=== PATIENT | female | born 1955 | race Caucasian/White ===

== ENCOUNTER 2017-11-13 06:56 | Day surgery (SDC) | payer OTHER ==
[2017-11-13] MEDS ORDERED: CEFAZOLIN 1 GM INJ (07:00)
[2017-11-13] MEDS: CEFAZOLIN 1 GM/50 ML (PMX) 50 ML IVPB (09:00)
[2017-11-13] MEDS ORDERED: LIDOCAINE 2% (SDV) 5 ML INJ (10:03)
[2017-11-13] MEDS ORDERED: GLYCOPYRROLATE 0.4 MG INJ (10:03)
[2017-11-13] MEDS ORDERED: PROPOFOL 20 ML (10:03)
[2017-11-13] MEDS ORDERED: NEOSTIGMINE 3 MG/3 ML SYRINGE (10:03)
[2017-11-13] MEDS ORDERED: FENTAnyl 50 MCG/ML VIAL ×2 (10:03→13:42)
[2017-11-13] MEDS ORDERED: ROCURONIUM 50 MG INJ (10:03)
[2017-11-13] MEDS ORDERED: MIDAZOLAM 1 MG/ML 2 ML INJ (10:03)
[2017-11-13] MEDS ORDERED: ONDANSETRON 4 MG INJ ×2 (10:04→13:42)
[2017-11-13] MEDS ORDERED: DEXAMETHASONE 4 MG/ML 1 ML INJ (10:04)
[2017-11-13] MEDS ORDERED: SUCCINYLCHOLINE CHLORIDE 100 MG/5 ML SYG IV (10:09)
[2017-11-13] MEDS: SOD CHLORIDE 0.9% 1,000 ML IV (10:22)
[2017-11-13] MEDS ORDERED: PHENYLephrine (100 MCG/ML) 5ML SYG (13:00)
[2017-11-13] MEDS ORDERED: FENTAnyl 50 MCG/ML VIAL IV ×2 (14:00)
[2017-11-13] MEDS ORDERED: LABETALOL HCL 20MG INJ IV (14:00)
[2017-11-13] MEDS ORDERED: OXYCODONE/ACETAMINOPHEN (5/325) TAB PO (14:00)
[2017-11-13] MEDS ORDERED: hydrALAzine 20 MG INJ IV (14:00)
[2017-11-13] MEDS: FENTAnyl 50 MCG/ML VIAL IV (14:21)
[2017-11-13] MEDS: ONDANSETRON 4 MG INJ IV (14:23)
[2017-11-13] MEDS: HYDROCODONE/APAP (7.5/325) TAB PO (14:29)
[2017-11-13] MEDS: OXYCODONE/ACETAMINOPHEN (5/325) TAB PO (15:58)
== END 2017-11-13 16:17 | disposition home or self-care (01) ==
LOC: SDS 06:56
DX: D05.12 Intraductal carcinoma in situ of left breast (principal); I10 Essential (primary) hypertension; E11.9 Type 2 diabetes mellitus without complications; E78.5 Hyperlipidemia, unspecified
CPT/HCPCS: 19301; 71045; 82962; 88307; 93005

== ENCOUNTER 2017-11-19 09:46 | Observation (INO) | payer OTHER ==
[2017-11-19 10:36] LABS: ADD MAN DIFF? NO
[2017-11-19 10:37] LABS: BASOPHILS % 0.4 % (0.0-2.0); EOSINOPHILS # 0.3 10^3/ul (0.0-0.5); EOSINOPHILS % 3.1 % (0.0-7.0); HEMATOCRIT 35.8 % (37.0-47.0); HEMOGLOBIN 11.8 g/dl (12.0-16.0); LYMPHOCYTES # 2.7 10^3/ul (0.8-2.9); LYMPHOCYTES % 24.7 % (15.0-51.0); MEAN CORPUSCULAR HEMOGLOBIN 28.6 pg (29.0-33.0); MEAN CORPUSCULAR VOLUME 86.9 fl (82.0-101.0); MEAN PLATELET VOLUME 10.1 fl (7.4-10.4); MONOCYTE # 0.9 10^3/ul (0.3-0.9); MONOCYTES % 8.1 % (0.0-11.0); NEUTROPHILS % 63.2 % (39.0-77.0); PLATELET COUNT 357 10^3/UL (140-415); RED BLOOD COUNT 4.12 10^6/ul (4.20-5.40); RED CELL DISTRIBUTION WIDTH 13.2 % (11.5-14.5)
[2017-11-19] MEDS: SOD CHLORIDE 0.9% 1,000 ML IV (10:49)
[2017-11-19 10:57] LABS: ALANINE AMINOTRANSFERASE 17 IU/L (13-69); ALBUMIN 4.5 g/dl (3.3-4.9); ALBUMIN/GLOBULIN RATIO 1.36; ALKALINE PHOSPHATASE 75 IU/L (42-121); ANION GAP 13 (8-16); ASPARTATE AMINO TRANSFERASE 22 IU/L (15-46); BILIRUBIN,INDIRECT 0.6 mg/dl (0-1.1); BILIRUBIN,TOTAL 0.6 mg/dl (0.2-1.3); BLOOD UREA NITROGEN 11 mg/dl (7-20); CALCIUM 9.3 mg/dl (8.4-10.2); CARBON DIOXIDE 31 mmol/L (21-31); CHLORIDE 96 mmol/L (97-110); CREATININE 0.64 mg/dl (0.44-1.00); GLUCOSE 211 mg/dl (70-220); INR 0.95; POTASSIUM 3.3 mmol/L (3.5-5.1); PROTIME 12.8 Sec (11.9-14.9); SODIUM 137 mmol/L (135-144); TOTAL PROTEIN 7.8 g/dl (6.1-8.1)
[2017-11-19 10:58] LABS: PARTIAL THROMBOPLASTIN TIME 29.9 Sec (25.0-35.0)
[2017-11-19 11:09] LABS: TROPONIN-I < 0.010 ng/ml (0.000-0.120)
[2017-11-19] MEDS: SOD CHLORIDE 0.9% 100 ML (11:58)
[2017-11-19] MEDS: IOHEXOL 100 ML (11:58)
[2017-11-19] MEDS: POTASSIUM CHLORIDE (SR) 20 MEQ TAB PO (13:02)
[2017-11-19] MEDS ORDERED: DEXTROSE 50% 50 ML SYRINGE IV ×2 (14:30)
[2017-11-19] MEDS ORDERED: NACL 0.9% 3 ML SYG IV (14:30)
[2017-11-19] MEDS ORDERED: GLUCOSE GEL 15 GRAM TUBE BUCCAL (14:30)
[2017-11-19] MEDS ORDERED: ACETAMINOPHEN 325 MG TAB PO (14:30)
[2017-11-19] MEDS ORDERED: GLUCOSE GEL 15 GRAM TUBE PO ×2 (14:30)
[2017-11-19] MEDS ORDERED: ONDANSETRON 4 MG INJ IV (14:30)
[2017-11-19] MEDS ORDERED: GLUCAGON 1 MG INJ IM (14:30)
[2017-11-19 15:19] LABS: MAGNESIUM 1.7 mg/dl (1.7-2.5)
[2017-11-19 16:46] LABS: CREATINE KINASE 26 IU/L (23-200)
[2017-11-19 16:59] LABS: CK INDEX 0.8; CK-MB < 0.22 ng/ml (0.0-2.4); TROPONIN-I < 0.010 ng/ml (0.000-0.120)
[2017-11-19] MEDS: INSULIN ASPART [NOVOLOG] 3 ML PEN SC ×2 (18:00→23:04)
[2017-11-19] MEDS: NS + KCL 20 MEQ 1,000 ML IV (18:02)
[2017-11-19] MEDS: ATORVASTATIN 20 MG TAB PO (20:37)
[2017-11-19] MEDS: INSULIN GLARGINE [LANTus] (100 UNITS/ML) SYG SC (23:05)
[2017-11-20 01:22] LABS: CREATINE KINASE 25 IU/L (23-200)
[2017-11-20 01:36] LABS: CK INDEX 0.9; CK-MB < 0.22 ng/ml (0.0-2.4); TROPONIN-I < 0.010 ng/ml (0.000-0.120)
[2017-11-20] MEDS: ACCU-CHEK XX (02:55)
[2017-11-20] MEDS: NS + KCL 20 MEQ 1,000 ML IV ×2 (06:00→10:18)
[2017-11-20 06:24] LABS: ADD MAN DIFF? NO
[2017-11-20 06:29] LABS: BASOPHILS % 0.3 % (0.0-2.0); EOSINOPHILS # 0.4 10^3/ul (0.0-0.5); EOSINOPHILS % 4.4 % (0.0-7.0); HEMATOCRIT 32.8 % (37.0-47.0); HEMOGLOBIN 10.4 g/dl (12.0-16.0); LYMPHOCYTES # 2.7 10^3/ul (0.8-2.9); LYMPHOCYTES % 30.6 % (15.0-51.0); MEAN CORPUSCULAR HEMOGLOBIN 27.9 pg (29.0-33.0); MEAN CORPUSCULAR HGB CONC 31.7 g/dl (32.0-37.0); MEAN CORPUSCULAR VOLUME 87.9 fl (82.0-101.0); MEAN PLATELET VOLUME 10.5 fl (7.4-10.4); MONOCYTE # 0.8 10^3/ul (0.3-0.9); MONOCYTES % 8.7 % (0.0-11.0); NEUTROPHIL # 4.8 10^3/ul (1.6-7.5); NEUTROPHILS % 55.7 % (39.0-77.0); PLATELET COUNT 335 10^3/UL (140-415); RED BLOOD COUNT 3.73 10^6/ul (4.20-5.40); RED CELL DISTRIBUTION WIDTH 13.5 % (11.5-14.5)
[2017-11-20 06:29] LABS: WHITE BLOOD COUNT 8.7 10^3/ul (4.8-10.8)
[2017-11-20 06:43] LABS: HEMOGLOBIN A1C 7.4 % (0-5.9)
[2017-11-20 07:03] LABS: ALANINE AMINOTRANSFERASE 22 IU/L (13-69); ALBUMIN 3.7 g/dl (3.3-4.9); ALBUMIN/GLOBULIN RATIO 1.23; ALKALINE PHOSPHATASE 71 IU/L (42-121); ANION GAP 12 (8-16); ASPARTATE AMINO TRANSFERASE 20 IU/L (15-46); BILIRUBIN,INDIRECT 0.6 mg/dl (0-1.1); BILIRUBIN,TOTAL 0.6 mg/dl (0.2-1.3); BLOOD UREA NITROGEN 9 mg/dl (7-20); CALCIUM 8.8 mg/dl (8.4-10.2); CARBON DIOXIDE 28 mmol/L (21-31); CHLORIDE 103 mmol/L (97-110); CHOL/HDL RATIO 3.3 RATIO; CHOLESTEROL 115 mg/dl (100-200); CREATININE 0.57 mg/dl (0.44-1.00); GLUCOSE 129 mg/dl (70-220); HDL CHOLESTEROL 34 mg/dl (35-98); LDL CHOLESTEROL,CALCULATED 66 mg/dl; MAGNESIUM 1.8 mg/dl (1.7-2.5); PHOSPHORUS 3.9 mg/dl (2.5-4.9); POTASSIUM 3.7 mmol/L (3.5-5.1); SODIUM 139 mmol/L (135-144); TOTAL PROTEIN 6.7 g/dl (6.1-8.1); TRIGLYCERIDES 75 mg/dl (0-149)
[2017-11-20 07:21] LABS: THYROID STIMULATING HORMONE 0.557 MIU/L (0.465-4.680)
[2017-11-20] MEDS: INSULIN ASPART [NOVOLOG] 3 ML PEN SC ×2 (07:29→11:48)
[2017-11-20] MEDS: AMLODIPINE 5 MG TAB PO (08:13)
[2017-11-20] MEDS: LOSARTAN 25 MG TAB PO (08:14)
== END 2017-11-20 14:35 | disposition home or self-care (01) ==
LOC: E/R 09:46 → 6WM 14:45
DX: R55 Syncope and collapse (principal); E11.65 Type 2 diabetes mellitus with hyperglycemia; I10 Essential (primary) hypertension; E87.6 Hypokalemia; E66.9 Obesity, unspecified; E78.5 Hyperlipidemia, unspecified; Z85.3 Personal history of malignant neoplasm of breast; Z98.890 Other specified postprocedural states; Z68.37 Body mass index [BMI] 37.0-37.9, adult
CPT/HCPCS: 36415; 70450; 71045; 71275; 80053; 80061; 82550; 82553; 82962; 83036; 83735; 84100; 84443; 84484; 85025; 85610; 85730; 93005; 93306; 93880; 99285-25; G0378

== ENCOUNTER 2017-12-01 11:36 | Day surgery (SDC) | payer OTHER ==
[~2017-12-01 11:36] MED LIST: PROPOFOL 200 MG INJ
[2017-12-01] MEDS ORDERED: SOD CHLORIDE 0.9% 1,000 ML IV (12:30)
[2017-12-01 12:51] LABS: ADD MAN DIFF? NO
[2017-12-01 12:54] LABS: BASOPHILS % 0.4 % (0.0-2.0); EOSINOPHILS # 0.4 10^3/ul (0.0-0.5); EOSINOPHILS % 4.1 % (0.0-7.0); HEMATOCRIT 34.4 % (37.0-47.0); HEMOGLOBIN 11.3 g/dl (12.0-16.0); LYMPHOCYTES # 2.4 10^3/ul (0.8-2.9); LYMPHOCYTES % 26.4 % (15.0-51.0); MEAN CORPUSCULAR HEMOGLOBIN 28.5 pg (29.0-33.0); MEAN CORPUSCULAR HGB CONC 32.8 g/dl (32.0-37.0); MEAN CORPUSCULAR VOLUME 86.9 fl (82.0-101.0); MEAN PLATELET VOLUME 10.9 fl (7.4-10.4); MONOCYTE # 0.7 10^3/ul (0.3-0.9); MONOCYTES % 7.7 % (0.0-11.0); NEUTROPHIL # 5.6 10^3/ul (1.6-7.5); NEUTROPHILS % 61.1 % (39.0-77.0); PLATELET COUNT 364 10^3/UL (140-415); RED BLOOD COUNT 3.96 10^6/ul (4.20-5.40); RED CELL DISTRIBUTION WIDTH 13.2 % (11.5-14.5)
[2017-12-01 12:54] LABS: WHITE BLOOD COUNT 9.2 10^3/ul (4.8-10.8)
[2017-12-01 13:14] LABS: ALANINE AMINOTRANSFERASE 19 IU/L (13-69); ALBUMIN 4.2 g/dl (3.3-4.9); ALBUMIN/GLOBULIN RATIO 1.27; ALKALINE PHOSPHATASE 97 IU/L (42-121); ANION GAP 15 (8-16); ASPARTATE AMINO TRANSFERASE 21 IU/L (15-46); BILIRUBIN,INDIRECT 0.4 mg/dl (0-1.1); BILIRUBIN,TOTAL 0.4 mg/dl (0.2-1.3); BLOOD UREA NITROGEN 15 mg/dl (7-20); CALCIUM 9.3 mg/dl (8.4-10.2); CARBON DIOXIDE 30 mmol/L (21-31); CHLORIDE 101 mmol/L (97-110); CREATININE 0.61 mg/dl (0.44-1.00); GLUCOSE 149 mg/dl (70-220); POTASSIUM 3.7 mmol/L (3.5-5.1); SODIUM 142 mmol/L (135-144); TOTAL PROTEIN 7.5 g/dl (6.1-8.1)
[2017-12-01 13:29] LABS: INR 1.05; PROTIME 13.8 Sec (11.9-14.9); PT RATIO 1.1
[2017-12-01] MEDS ORDERED: ETOMIDATE 20 MG INJ (14:11)
[2017-12-01] MEDS ORDERED: LIDOCAINE 1% (MDV) 20 ML INJ (14:11)
[2017-12-01] MEDS: ISOSULFAN BLUE 1% 5 ML INJ SC (14:31)
[2017-12-01] MEDS ORDERED: CEFAZOLIN 1 GM INJ (14:31)
[2017-12-01] MEDS: CEFAZOLIN 2 GM/50 ML (PMX) 50 ML IVPB (14:50)
[2017-12-01] MEDS ORDERED: ONDANSETRON 4 MG INJ (15:41)
[2017-12-01] MEDS ORDERED: FAMOTIDINE 20 MG INJ (15:41)
[2017-12-01] MEDS ORDERED: FENTAnyl 50 MCG/ML VIAL (15:42)
[2017-12-01] MEDS: HYDROCODONE/APAP (7.5/325) TAB PO (15:59)
[2017-12-01] MEDS: MEPERIDINE 25 MG INJ IV (16:28)
== END 2017-12-01 17:50 | disposition home or self-care (01) ==
LOC: SDS 11:36
DX: D05.12 Intraductal carcinoma in situ of left breast (principal); I10 Essential (primary) hypertension; E11.9 Type 2 diabetes mellitus without complications; E78.00 Pure hypercholesterolemia, unspecified
CPT/HCPCS: 19301; 71045; 80053; 82962; 85025; 85610; 85730; 88307; 88331; 88342; 93005